=== PATIENT | female | born 1975 | race Caucasian/White ===

== ENCOUNTER 2016-05-04 10:56 | Emergency (ER) | payer MEDICAID ==
--- NOTE | ~2016-05-04 | CR282 ---
[facility] A Service of [facility] [place] RADIOLOGY TEXT RESULTS PATIENT: ABIOLA BOLTON LOCATION: [facility] : 73 UNIT #: [id number] AGE: [address]: TYLER BERTRAND SEX: F ORDER DR: [id number] [facility] [address] [place], [place] [address] [id number] E MR#: [id number] Acc #: [id number] NAME: ABIOLA BOLTON. : 1975 SEX: F STUDY DATE/TIME: 05/04/2016 09:25 UNIT: [facility] ROOM: STUDY DESCRIPTION: CR Wrist Min 3 View Rt Attending Physician: Tyler Bertrand Aprn Ordering Physician: Ed Santy Bhagat M.D. Primary Care Physician: No Primary Care Physician MEDICAL IMAGING REPORT This report is preliminary unless electronic signature is present EXAM Right wrist, 3 views, 05/04/2016, 0925 hours. CLINICAL HISTORY Patient fell on 05/03/2016, complaining of hand and wrist pain and swelling since fall. COMPARISON None. FINDINGS AP, lateral, and oblique views demonstrate normal bone density. The distal radius and ulna are intact. There is a very small corticated ossicle adjacent to the pisiform, which is felt chronic and not related to an avulsion fracture. There are small lucencies in the proximal aspect of the lunate, likely cysts. Small erosions cannot be excluded. No joint space loss or spurring. IMPRESSION No definite fracture seen. There is a small corticated ossicle adjacent to the pisiform, most likely a chronic change. This is felt unlikely to represent an avulsion. There are small lucencies in the lunate bone proximally. Small bone cysts are favored over small erosions. Dictated by... Cherelle Arguelles M.D. THIS IS AN ELECTRONICALLY VERIFIED REPORT Cherelle Arguelles M.D. at 05/04/2016 2:27 PM WALDO/erica [facility] A Service [facility] RADIOLOGY TEXT RESULTS PATIENT: ABIOLA BOLTON LOCATION: [facility] #: [id number] : [birth year] UNIT #: [id number] AGE: [address]: TYLER BERTRAND SEX: F ORDER DR: TD: 05/04/2016 11:53 JOB #: [id number] MEDICAL IMAGING REPORT COPY
--- NOTE | ~2016-05-04 | CT71 ---
[facility] A Service [facility] RADIOLOGY TEXT RESULTS PATIENT: ABIOLA BOLTON LOCATION: [facility] : 73 UNIT #: [id number] AGE: [address]: TYLER BERTRAND SEX: F ORDER DR: [id number] [facility] [place], [place] [address] [id number] E MR#: [id number] Acc #: [id number] NAME: ABIOLA BOLTON. : 1975 SEX: F STUDY DATE/TIME: 05/04/2016 9:56 UNIT: [facility] ROOM: STUDY DESCRIPTION: CT Head Wo Contrast Attending Physician: Tyler Bertrand Aprn Ordering Physician: Ed Santy Bhagat M.D. Primary Care Physician: No Primary Care Physician MEDICAL IMAGING REPORT This report is preliminary unless electronic signature is present EXAM Head CT no contrast. Date of study 05/04/2016. COMPARISON 05/12/2005. CLINICAL HISTORY Fell and struck head yesterday, dizziness. COMPARISON Prior head CT May 12, 2005. TECHNIQUE Routine unenhanced head CT. This CT exam was performed with one or more of the following radiation dose reduction techniques: automatic exposure control, adjustment of mA and/or kV according to patient size, and iterative reconstruction. Axial noncontrast images were obtained from the skull base to the vertex. This CT exam was performed with one or more of the following radiation dose reduction techniques: automatic exposure control, adjustment of mA and/or kV according to patient size, and iterative reconstruction. FINDINGS Ventricular size and configuration are normal. There is no evidence of acute infarct or hemorrhage. There are no extraaxial fluid collections. No mass lesion or mass effect is seen. There are no skull fractures. IMPRESSION Normal noncontrast head CT. [facility] A Service [facility] RADIOLOGY TEXT RESULTS PATIENT: ABIOLA BOLTON LOCATION: [facility] : 73 UNIT #: [id number] AGE: [address]: TYLER BERTRAND SEX: F ORDER DR: Dictated by... Jayson Pickering M.D. THIS IS AN ELECTRONICALLY VERIFIED REPORT Jayson Pickering M.D. at 05/25/2016 5:05 PM TEV/gz TD: 05/04/2016 12:15 JOB #: [id number] MEDICAL IMAGING REPORT Page 1 of 1 COPY
--- NOTE | ~2016-05-04 | CR142 ---
[facility] A Service of [facility] RADIOLOGY TEXT RESULTS PATIENT: ABIOLA BOLTON LOCATION: [facility] : 73 UNIT #: [id number] AGE: [address]: TYLER BERTRAND SEX: F ORDER DR: [id number] [facility] [address] [place], [place] [address] [id number] E MR#: [id number] Acc #: [id number] NAME: ABIOLA BOLTON. : 1975 SEX: F STUDY DATE/TIME: 05/04/2016 09:22 UNIT: [facility] ROOM: STUDY DESCRIPTION: CR Hand Min 3 Views Rt Attending Physician: Tyler Bertrand Aprn Ordering Physician: Ed Santy Bhagat M.D. Primary Care Physician: No Primary Care Physician MEDICAL IMAGING REPORT This report is preliminary unless electronic signature is present EXAM Right hand, 3 views, 05/04/2016 0922 hours CLINICAL HISTORY 40-year-old woman who felt on 05/03/2016 complaining of hand and wrist pain and swelling since fall. COMPARISON Right wrist film, 05/04/2016. FINDINGS AP, lateral, and oblique views of the right hand demonstrate normal bone density. There is no fracture of the metacarpals or fingers. IMPRESSION Negative right hand. Dictated by... Cherelle Arguelles M.D. THIS IS AN ELECTRONICALLY VERIFIED REPORT Cherelle Arguelles M.D. at 05/04/2016 2:27 PM WALDO/moe TD: 05/04/2016 12:33 JOB #: [id number] MEDICAL IMAGING REPORT COPY
[~2016-05-04 10:56] MED LIST: BACTRIM DS TABL1 TA1; DOLOBID500 MG PO; KEFLEX; MEDROL PO
== END 2016-05-04 11:22 | disposition home or self-care (01) ==
LOC: CED 10:56
DX: S00.83XA Contusion of other part of head, initial encounter (principal); S60.211A Contusion of right wrist, initial encounter; F17.210 Nicotine dependence, cigarettes, uncomplicated; W18.40XA Slipping, tripping and stumbling without falling, unspecified, initial encounter
CPT/HCPCS: 29280; 70450; 73110; 73130; 99284

== ENCOUNTER 2016-06-15 23:21 | Emergency (ER) | payer MEDICAID | END 2016-06-16 02:00 | disposition left against medical advice (07) | LOC: CED 23:21 | DX: Z53.21 Procedure and treatment not carried out due to patient leaving prior to being seen by health care provider (principal) ==